=== PATIENT | male | born 1995 | race Native Hawaiian/Other Pacific Islander ===

== ENCOUNTER 2019-09-12 18:31 | Emergency (ER) | payer SELFPAY ==
[2019-09-12 19:05] VITALS: BP 116/68
--- NOTE | 2019-09-12 19:06 | Event Note ---
ED Screening Note Date of service: 09/12/19 Time: 19:03 ED Screening Note: This is a 23 y.o. M. that presents to the ER with rectal bleeding and pain that started today. Patient states he was straining while trying to pass bowel and noticed a large amount of blood in toilet. This initial assessment/diagnostic orders/clinical plan/treatment(s) is/are subject to change based on patients health status, clinical progression and re- assessment by fellow clinical providers in the ED. Further treatment and workup at subsequent clinical providers discretion. Patient/guardian urged not to elope from the ED as their condition may be serious if not clinically assessed and managed. Initial orders include: Rectal exam Occult stool
--- NOTE | 2019-09-12 21:38 | Emergency Department Report ---
ED GI Bleed HPI - General Chief complaint: GI Bleed Stated complaint: RECTUM BLEEDING/PAIN Time Seen by Provider: 09/12/19 19:03 Source: patient Mode of arrival: Ambulatory Limitations: Language Barrier - History of Present Illness Initial comments: Bandar is a 23 yo male without significant past medical hx who presents with rectal bleeding and irritation after bowel movement. Copious amount of gross blood. No abdominal pain. complaint: blood on toilet paper -: Sudden, This afternoon Severity scale (0 -10): 0 Quality: other (rectal irritation) Consistency: now resolved Improves with: eating Worsens with: bowel movement Context: other (no previous history) - Related Data Previous Rx's Medication Instructions Recorded Last Taken Type Docusate Sodium [Colace] 100 mg PO BID 14 Days #28 capsule 09/12/19 Unknown Rx Allergies Allergy/AdvReac Type Severity Reaction Status Date / Time No Known Allergies Allergy Unverified 09/12/19 18:32 ED Review of Systems ROS: Stated complaint: RECTUM BLEEDING/PAIN Other details as noted in HPI Comment: All other systems reviewed and negative Constitutional: denies: fever, malaise Respiratory: denies: cough Cardiovascular: denies: chest pain Gastrointestinal: denies: abdominal pain, nausea, vomiting ED Past Medical Hx - Past Medical History Previous Medical History?: No - Surgical History Past Surgical History?: No - Social History Smoking Status: Current Every Day Smoker Substance Use Type: None - Medications Home Medications: Home Medications Medication Instructions Recorded Confirmed Last Taken Type Docusate Sodium [Colace] 100 mg PO BID 14 Days #28 capsule 09/12/19 Unknown Rx ED Physical Exam - General Limitations: Language Barrier General appearance: alert, in no apparent distress - Head Head exam: Present: atraumatic, normocephalic - Eye Eye exam: Present: normal appearance - ENT ENT exam: Present: mucous membranes moist - Neck Neck exam: Present: normal inspection, full ROM - Respiratory Respiratory exam: Present: normal lung sounds bilaterally. Absent: respiratory distress, wheezes, rales, rhonchi - Cardiovascular Cardiovascular Exam: Present: regular rate, normal rhythm, normal heart sounds. Absent: systolic murmur, diastolic murmur, rubs, gallop - GI/Abdominal GI/Abdominal exam: Present: soft, normal bowel sounds. Absent: distended, tenderness, guarding, rebound - Rectal Rectal exam: Present: other (rectal irritation fissure at 6 o'clock) - Extremities Exam Extremities exam: Present: normal inspection - Back Exam Back exam: Present: normal inspection - Neurological Exam Neurological exam: Present: alert, oriented X3 - Psychiatric Psychiatric exam: Present: normal affect, normal mood - Skin Skin exam: Present: warm, dry, intact, normal color. Absent: rash ED Course Vital Signs 09/12/19 19:00 Temperature 97.9 F Pulse Rate 121 H Respiratory 18 Rate Blood Pressure 116/68 O2 Sat by Pulse 97 Oximetry ED Medical Decision Making - Medical Decision Making Anal fissure prescribed stool softeners recommended sitz baths Critical care attestation.: If time is entered above; I have spent that time in minutes in the direct care of this critically ill patient, excluding procedure time. ED Disposition Clinical Impression: Anal fissure, Rectal bleeding Disposition: DC-01 TO HOME OR SELFCARE Is pt being admited?: No Does the pt Need Aspirin: No Condition: Stable Instructions: Anal Fissure (ED) Prescriptions: Docusate Sodium [Colace] 100 mg PO BID 14 Days #28 capsule Referrals: [facility] [Outside] - as needed
== END 2019-09-12 21:45 | disposition home or self-care (01) ==
LOC: ED 18:31
DX: K60.2 Anal fissure, unspecified (principal); F17.200 Nicotine dependence, unspecified, uncomplicated